=== PATIENT | male | born 1945 | race African-American/Black ===

== ENCOUNTER 2018-05-12 17:53 | Emergency (ER) | payer SELFPAY ==
[~2018-05-12] VITALS: Ht 165.1 cm; Wt 73.4 kg
[2018-05-12 22:56] LABS: CLARITY URINE CLEAR (CLEAR); COLOR URINE YELLOW (YELLOW); KETONES URINE NEGATIVE (NEGATIVE); LEUKOCYTE ESTERASE URINE TRACE (NEGATIVE); NITRITE URINE NEGATIVE (NEGATIVE); OCCULT BLOOD URINE TRACE (NEGATIVE); PROTEIN URINE TRACE (NEGATIVE); SPECIFIC GRAVITY URINE 1.009 (1.005-1.030); UROBILINOGEN URINE 0.2 E.U./dL (0.2-1.0)
[2018-05-12] MEDS ORDERED: SODIUM CHLORIDE 0.9% 1,000 ML IV ONE (23:04)
[2018-05-12 23:30] LABS: PARTIAL THROMBOPLASTIN TIME 28.9 sec (23.4-31.0); PROTHROMBIN TIME 9.9 sec (9.1-11.1)
[2018-05-12 23:39] LABS: HEMATOCRIT. 42.9 % (42.0-52.0); HEMOGLOBIN. 14.4 g/dL (14.0-18.0); MEAN CORPUSCULAR HEMOGLOBIN 27.8 pg (28.0-32.0); MEAN CORPUSCULAR VOLUME 82.8 fL (80.0-94.0); MEAN PLATELET VOLUME 7.7 fl (7.4-10.4); PLATELET 167 x1000/uL (130-400); RED BLOOD CELL COUNT 5.19 mill/uL (4.7-6.1); RED CELL DISTRIBUTION WIDTH 13.1 % (11.6-14.6)
[2018-05-12 23:59] LABS: CHLORIDE 94 mEq/L (98-107)
[2018-05-13 01:36] LABS: PLATELET ESTIMATE NORMAL
[2018-05-13 03:00] VITALS: BP 131/68
== END 2018-05-13 03:01 | disposition home or self-care (01) ==
LOC: ER 17:53
DX: R53.1 Weakness (principal); J98.11 Atelectasis; I10 Essential (primary) hypertension
CPT/HCPCS: 36415; 70450; 71045; 80053; 81003; 83690; 83735; 83880; 84484; 85025; 85610; 85730; 93005; 96360; 96361; 99285; J7030